=== PATIENT | male | born 1995 | race Caucasian/White ===

== ENCOUNTER 2022-06-20 12:53 | Observation (INO) | payer OTHER ==
[2022-06-20] MEDS ORDERED: SODIUM CHLORIDE 1,000 ML IV STA (17:17)
[2022-06-20] MEDS ORDERED: ONDANSETRON 4 MG/2 ML VIAL IVPUSH ONE ×2 (17:17→22:21)
[2022-06-20] MEDS ORDERED: ACETAMINOPHEN 1000 MG/100 ML BAG IVPB ONE (17:17)
[2022-06-20] MEDS ORDERED: ACETAMINOPHEN INJECTION 100 ML IVPB ONE (17:23)
[2022-06-20] MEDS ORDERED: ONDANSETRON 4 MG/2 ML VIAL ONE ×2 (17:23→22:33)
[2022-06-20] MEDS ORDERED: LACTATED RINGERS SOLUTION 1000 ML INFUS.BAG IV ONE ×2 (17:30→19:08)
[2022-06-20 18:37] LABS: HEMATOCRIT 49.3 % (35.4-49); HEMOGLOBIN 17.2 GM/dL (11.7-16.9); MCH 29.1 pg (25.7-33.7); MCHC 34.9 g/dl (32.0-35.9); MEAN CELL VOLUME 83.4 fl (80-96); MEAN PLT VOLUME 9.4 fl (7.5-11.1); PLATELET COUNT 440 10^3/uL (134-434); RBC 5.92 M/mm3 (4.00-5.60); RDW 13.3 % (11.9-15.9); WHITE BLOOD COUNT 22.9 K/mm3 (4.0-10.0)
[2022-06-20 18:39] LABS: CALCIUM 11.1 mg/dL (8.5-10.1)
[2022-06-20 18:40] LABS: BLOOD UREA NITROGEN 58.5 mg/dL (7-18)
[2022-06-20 18:43] LABS: CREATININE 2.4 mg/dL (0.55-1.3)
[2022-06-20 18:44] LABS: BILIRUBIN,TOTAL 1.7 mg/dL (0.2-1); TOT PROT 10.8 g/dl (6.4-8.2)
[2022-06-20] MEDS ORDERED: METOCLOPRAMIDE HCL INJECTION 10 MG/2 ML VIAL IVPUSH ONE (18:59)
[2022-06-20] MEDS ORDERED: METOCLOPRAMIDE HCL INJECTION 10 MG/2 ML VIAL ONE (19:07)
[2022-06-20 20:34] LABS: BLOOD UREA NITROGEN 53.7 mg/dL (7-18)
[2022-06-20 20:37] LABS: CREATININE 1.8 mg/dL (0.55-1.3)
[2022-06-20 20:46] LABS: ANISOCYTOSIS 0; MACROCYTOSIS 0; PLATELET ESTIMATE NORMAL
[2022-06-20 22:48] LABS: BASO % 0.3 % (0-2.0); HEMATOCRIT 40.2 % (35.4-49); HEMOGLOBIN 13.9 GM/dL (11.7-16.9); LYMPH % 11.3 % (8-40); MCH 29.2 pg (25.7-33.7); MCHC 34.5 g/dl (32.0-35.9); MEAN CELL VOLUME 84.5 fl (80-96); MONO % 12.2 % (3.8-10.2); NEUT % 76.2 % (42.8-82.8); PLATELET COUNT 288 10^3/uL (134-434); RBC 4.76 M/mm3 (4.00-5.60); WHITE BLOOD COUNT 19.5 K/mm3 (4.0-10.0)
[2022-06-21] MEDS ORDERED: ONDANSETRON 4 MG/2 ML VIAL IVPUSH ONE (00:24)
[2022-06-21] MEDS ORDERED: ONDANSETRON 4 MG/2 ML VIAL ONE (00:53)
[2022-06-21] MEDS: LACTATED RINGERS SOLUTION 1,000 ML/1,000 ML INFUS.BAG IV SCH ×2 (01:05→14:56)
[2022-06-21] MEDS ORDERED: METOCLOPRAMIDE HCL INJECTION 10 MG/2 ML VIAL IVPB PRN (01:14)
[2022-06-21 03:31] VITALS: BMI 21.4
[2022-06-21] MEDS: HEPARIN NA (PORCINE) 5,000 UNITS/ML 1ML VIAL SQ SCH ×2 (06:45→14:57)
[2022-06-21] MEDS ORDERED: ONDANSETRON 4 MG/2 ML VIAL IVPUSH PRN (06:54)
[2022-06-21] MEDS ORDERED: CEFTRIAXONE 1 GM in DEXTROSE 5%-WATER - 50 ML IVPB SCH (10:00)
[2022-06-21 10:34] LABS: HEMATOCRIT 38.9 % (35.4-49); MCH 28.6 pg (25.7-33.7); MCHC 33.4 g/dl (32.0-35.9); MEAN CELL VOLUME 85.5 fl (80-96); MEAN PLT VOLUME 9.1 fl (7.5-11.1); PLATELET COUNT 286 10^3/uL (134-434); RBC 4.55 M/mm3 (4.00-5.60); RDW 13.2 % (11.9-15.9); WHITE BLOOD COUNT 16.2 K/mm3 (4.0-10.0)
[2022-06-21 11:08] LABS: BILIRUBIN,DIRECT 0.3 mg/dL (0.0-0.2); MAGNESIUM 2.5 mg/dL (1.8-2.4)
[2022-06-21 11:10] LABS: BILIRUBIN,TOTAL 1.5 mg/dL (0.2-1)
[2022-06-21 11:11] LABS: PHOSPHOROUS 2.5 mg/dL (2.5-4.9)
[2022-06-21 11:12] LABS: BILIRUBIN,TOTAL 1.5 mg/dL (0.2-1)
[2022-06-21 11:37] LABS: ALBUMIN 3.6 g/dl (3.4-5.0); TOT PROT 7.3 g/dl (6.4-8.2); TOT PROT 7.4 g/dl (6.4-8.2)
[2022-06-21 13:47] VITALS: RESP 16
[2022-06-21] MEDS ORDERED: ACETAMINOPHEN 1000 MG/100 ML BAG IVPB ONE (15:00)
[2022-06-21 18:32] VITALS: BP 135/79; PULSE 70; TEMP 98.6
== END 2022-06-21 18:59 | disposition home or self-care (01) ==
LOC: JER 12:53 → UNDOADMOB 23:43 → INTOOBSV 23:43 → JERBED 23:43 → J5S 06-21 03:20 → JERBED 06-21 16:12
PROVIDERS: ADMIT Internal Medicine; ATTEND Internal Medicine
PROC: 3E033NZ Introduction of Analgesics, Hypnotics, Sedatives into Peripheral Vein, Percutaneous Approach (ICD-10-PCS; principal; 2022-06-21)
PROC: 3E03329 Introduction of Other Anti-infective into Peripheral Vein, Percutaneous Approach (ICD-10-PCS; 2022-06-21)
PROC: 3E0337Z Introduction of Electrolytic and Water Balance Substance into Peripheral Vein, Percutaneous Approach (ICD-10-PCS; 2022-06-21)
PROC: 3E033GC Introduction of Other Therapeutic Substance into Peripheral Vein, Percutaneous Approach (ICD-10-PCS; 2022-06-21)
DX: R11.2 Nausea with vomiting, unspecified (principal); N17.9 Acute kidney failure, unspecified; M79.10 Myalgia, unspecified site; R06.6 Hiccough; R20.2 Paresthesia of skin; R20.0 Anesthesia of skin; R05.9 Cough, unspecified; F17.210 Nicotine dependence, cigarettes, uncomplicated; F12.10 Cannabis abuse, uncomplicated
CPT/HCPCS: 0241U-QW; 36415; 74176-TC; 76705-TC; 80048; 80053; 80076; 82962; 83036; 83690; 83735; 84100; 85025; 85027; 86708; 87040; 93005; 93010; 99285-25; G0378; J1644